=== PATIENT | male | born 2005 | race Hispanic/Latino ===

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

== ENCOUNTER 2023-09-21 18:21 | Emergency (ER) | payer OTHER, SELFPAY | END 2023-09-21 19:28 | disposition home or self-care (01) | LOC: MADERS 18:21 | DX: K05.10 Chronic gingivitis, plaque induced (principal); F17.210 Nicotine dependence, cigarettes, uncomplicated | CPT/HCPCS: 99282 ==